=== PATIENT | male | born 1980 | race Caucasian/White ===

== ENCOUNTER 2020-09-25 18:41 | Emergency (ER) | payer OTHER ==
[~2020-09-25] VITALS: Ht 182.9 cm; Wt 90.7 kg
[2020-09-25 18:50] VITALS: BP_SYST 113
--- NOTE | 2020-09-25 18:58 | NUR ---
PT MOVED TO BED 2 FOR EVALUATION
--- NOTE | 2020-09-25 19:10 | NUR ---
DR. QUIROZ AT BEDSIDE TO EVALUATE PT STATUS
--- NOTE | 2020-09-25 19:30 | NUR ---
Patient resting quietly. No acute distress noted. Vital signs within normal range. Introduced self to patient, positioned for comfort. Bed to low position sr up. patient c/o mid abd pain. denies any n/v or diarrhea. Continue to monitor.
[2020-09-25 19:45] LABS: BASOPHILS # (AUTO) 0.1 K/uL (0.0-0.2); BASOPHILS % (AUTO) 1.3 % (0.0-2.0); EOSINOPHILS # (AUTO) 0.1 K/uL (0.0-0.4); HEMATOCRIT 44.4 % (36-54); HEMOGLOBIN 15.1 g/dL (14.0-18.0); LYMPHOCYTES # (AUTO) 2.5 K/uL (1.0-5.5); LYMPHOCYTES % (AUTO) 41.1 % (20.5-51.5); MEAN CORPUSCULAR HEMOGLOBIN 29 pg (27-31); MEAN CORPUSCULAR HGB CONC 34 % (32-36); MEAN CORPUSCULAR VOLUME 86 fL (79.0-98.0); MONOCYTES # (AUTO) 0.6 K/uL (0.0-1.0); MONOCYTES % (AUTO) 9.6 % (1.7-9.3); NEUTROPHILS # (AUTO) 2.8 K/uL (1.8-7.7); PLATELET COUNT (AUTO) 217 K/uL (130-430); RED BLOOD CELL COUNT(AUTO) 5.17 MIL/uL (4.2-6.2); RED CELL DISTRIBUTION WIDTH 13.1 % (9.0-15.0); WHITE BLOOD COUNT (AUTO) 6.1 K/uL (4.8-10.8)
[2020-09-25 20:04] LABS: CALCIUM 9.1 mg/dL (8.4-11.0); CREATININE 1.19 mg/dL (0.55-1.30); POTASSIUM 3.7 mmol/L (3.5-5.1)
[2020-09-25 20:10] LABS: PROTHROMBIN TIME 10.1 SECS (9.5-12.5)
[2020-09-25 20:18] LABS: ALBUMIN 3.8 g/dL (3.4-4.8); TOTAL BILIRUBIN 0.5 mg/dL (0.0-1.0)
--- NOTE | 2020-09-25 21:00 | NUR ---
Note undone in EDM - 09/25/20 at 2113 by SALVATORE Patient given written and verbal discharge instructions and verbalizes understanding. DR. RICHIE VAZQUEZ MD discussed with patient the results and treatment provided. Patient in stable condition. ID arm band removed. Rx of NORCO AND PRILOSEC given. Patient educated on pain management and to follow up with PMD. Pain Scale 0/10. Opportunity for questions provided and answered. Medication side effect fact sheet provided.
[2020-09-25 21:06] VITALS: BP_SYST 116
--- NOTE | 2020-09-25 21:08 | NUR ---
Patient given written and verbal discharge instructions and verbalizes understanding. ER MD discussed with patient the results and treatment provided. Patient in stable condition. ID arm band removed. IV catheter removed intact and dressing applied, no active bleeding. Rx of Prilosec and [place] given. Patient educated on pain management and to follow up with PMD. Pain Scale . Opportunity for questions provided and answered. Medication side effect fact sheet provided.
== END 2020-09-25 21:06 | disposition home or self-care (01) ==
LOC: SED 18:41
DX: R10.9 Unspecified abdominal pain (principal)
CPT/HCPCS: 36415; 76376; 80053; 82150-TC; 83605; 83690-TC; 85025; 85610-TC; 85730-TC; 99284